=== PATIENT | female | born 1970 ===

== ENCOUNTER 2017-01-08 05:10 | Inpatient (IN) | payer OTHER ==
[~2017-01-08] VITALS: Ht 157.5 cm; Wt 77.1 kg
[2017-01-08] VITALS (15 sets, daily range): BP systolic 120–154; BP diastolic 72–89
[2017-01-08] MEDS ORDERED: Ciprofloxacin Opth Soln RIGHT EYE SCH (06:00)
[2017-01-08] MEDS ORDERED: Akten 3.5% 1ml Btl RIGHT EYE SCH (06:00)
[2017-01-08] MEDS ORDERED: Pred Forte 1% Opth Susp 1ml RIGHT EYE SCH (06:00)
[2017-01-08] MEDS ORDERED: Phenylephrine 2.5% Op Soln RIGHT EYE SCH (06:00)
[2017-01-08 06:26] LABS: APPEARANCE,URINE CLEAR; KETONES,URINE NEGATIVE (NEGATIVE); LEUKOCYTE ESTERASE ,URINE NEGATIVE (NEGATIVE); NITRITE,URINE NEGATIVE (NEGATIVE); PH,URINE 6 (4.5-8.0); PROTEIN,URINE NEGATIVE (NEGATIVE); UROBILINOGEN,URINE NORMAL MG/DL (0.0-1.0)
[2017-01-08] MEDS ORDERED: OXYCODON-ACETA1 EAC2 ORAL (06:28)
[2017-01-08] MEDS ORDERED: METFORMIN HCL1000 M1 ORAL (06:28)
[2017-01-08] MEDS ORDERED: GLIPIZIDE10 MG PO (06:28)
[2017-01-08] MEDS ORDERED: ATORVASTATIN CA20 MG ORAL (06:28)
[2017-01-08] MEDS ORDERED: LISINOPRIL5 MG ORAL (06:28)
[2017-01-08] MEDS ORDERED: HUMULIN N100 UNIT/1 SUBQ (06:28)
[2017-01-08] MEDS ORDERED: SERTRALINE HCL50 MG ORAL (06:28)
[2017-01-08] MEDS ORDERED: Thrombin 5000 units TOPIC ONE (06:35)
[2017-01-08] MEDS ORDERED: Thrombin 5000 units spray kit TOPIC ONE (06:35)
[2017-01-08] MEDS ORDERED: Bupivacaine w/Epi 0.5% 30ml Vial INJ ONE (06:35)
[2017-01-08] MEDS ORDERED: Gelfoam Absorbable 1gm powder pkt TOPIC ONE (06:35)
[2017-01-08] MEDS ORDERED: Bacitracin 50000 Units Vial ONE (06:36)
[2017-01-08 06:46] LABS: BACTERIA,URINE OCCASIONAL /HPF; RBC,URINE 0-2 /HPF (0 - 2); SQUAMOUS EPITHELIAL CELL,UR OCCASIONAL /LPF (NONE/OCC); WBC,URINE 0-2 /HPF (0 - 2)
[2017-01-08] MEDS ORDERED: Propofol 10mg/ml 20ml IV ONE (07:00)
[2017-01-08] MEDS ORDERED: LR 1000ml ONE (07:00)
[2017-01-08] MEDS ORDERED: Midazolam 2mg/2ml Inj ONE (07:00)
[2017-01-08] MEDS ORDERED: fentaNYL 100 mcg/2 mL IV ONE (07:00)
[2017-01-08] MEDS ORDERED: Zemuron 50mg/5ml Inj IV ONE (07:00)
--- NOTE | 2017-01-08 07:02 | Pre-Procedure Note/Attestation ---
Pre-Procedure Note/Attestation Complete Prior to Procedure Procedure Narrative: For L5-S1 Anterior Lumbar Decompression and Fusion Indications for Procedure Pre-Operative Diagnosis: Instability with Disc Herniation L5-S1 Attestation I attest that I discussed the nature of the procedure; its benefits; risks and complications; and alternatives (and the risks and benefits of such alternatives ), prior to the procedure, with the patient (or the patient's legal patient admitting representative). I attest that, if there was a reasonable possibility of needing a blood transfusion, the patient (or the patient's legal patient admitting representative) was given the [facility] standardized written summary, pursuant to the Antonio Uriel Blood Safety Act ([place] Health and Safety Code # 1645, as amended). I attest that I re-evaluated the patient just prior to the surgery and that there has been no change in the patient's H&P, except as documented below: JENNYFER DESAI January 08, 2017 07:02
[2017-01-08] MEDS ORDERED: Clindamycin 600mg 50 ML IV ONE (07:09)
--- NOTE | 2017-01-08 07:59 | Anethesia Preoperative Eval ---
Anesthesia Pre-op PMH/ROS General Date of Evaluation: January 08, 2017 Time of Evaluation: 07:00 Anesthesiologist: santos ASA Score: ASA 2 Mallampati Score Class I : Soft palate, uvula, fauces, pillars visible Class II: Soft palate, uvula, fauces visible Class III: Soft palate, base of uvula visible Class IV: Only hard plate visible Mallampati Classification: Class I Surgeon: doretha Surgical Procedure: alif Anesthesia History: none Family History: no anesthesia problems Allergies: Coded Allergies: HYDROCODONE (Verified Allergy, Mild, 01/08/17) itching Past Medical History Cardiovascular: Reports: HTN Endocrine: Reports: DM Anesthesia Pre-op Phys. Exam Physician Exam Last Vital Signs Date Time Temp Pulse Resp B/P Pulse Ox O2 Delivery O2 Flow Rate FiO2 01/08/17 06:29 97.9 78 20 128/84 100 Room Air Anesthesia Pre-op A/P Labs Urine Test Test 01/08/17 06:05 Urine HCG, Qualitative Negative Maria De Jesus Main MD January 08, 2017 07:59
[2017-01-08] MEDS ORDERED: LORazepam Inj 2mg/ml 1ml IV PRN (08:00)
[2017-01-08] MEDS ORDERED: Acetaminophen 650 MG SUPP RECTAL PRN (08:30)
--- NOTE | 2017-01-08 08:41 | Operative Note - PDOC ---
Operative Note Operative Note Chief Complaint: Low back and leg pain Pre-op Diagnosis: Instability with Disc Herniation L5-S1 Procedure: L5/S1 Anterior lumbar decompression and fusion Post-op Diagnosis: same as pre-op Operative Findings: consistent w/pre-op dx studies Surgeon: Carin Geological Drafter: RACHANA La Additional Surgeons: Holcomb - Vascular Access Anesthesiologist: Kristi Anesthesia: general Specimen: none Complications: yes Condition: stable Estimated Blood Loss: minimal Drains: none Implant(s) used?: Yes - Chasidy InFix Medium 8, 3+3 degree, Chasidy DBJENNYFER PIERCE January 08, 2017 08:41
[2017-01-08] MEDS ORDERED: LORazepam 1mg tab ORAL PRN (08:45)
[2017-01-08] MEDS ORDERED: DiphenhydrAMINE 50mg/ml Inj IVP PRN (08:45)
--- NOTE | 2017-01-08 08:47 | Immediate Post-Op Evaluation ---
Immediate Post-Op Evalulation Immediate Post-Op Evalulation Procedure: alif Date of Evaluation: January 08, 2017 Time of Evaluation: 08:46 Nausea: No Vomiting: No Patient Status: extubated Given Within 1 Hr of Incision: Yes Maria De Jesus Main MD January 08, 2017 08:47
[2017-01-08] MEDS: PCA Morphine 1mg/ml 30 ML IV PRN (09:37)
[2017-01-08] MEDS: fentaNYL 100 mcg/2 mL IV PRN ×3 (09:50→10:22)
[2017-01-08] MEDS ORDERED: Rate Change PCA 1 Each MISC PRN (10:00)
[2017-01-08] MEDS ORDERED: Naloxone 0.4mg/ml Inj IVP PRN (10:00)
[2017-01-08] MEDS ORDERED: Morphine Sulfate 2mg/ml Inj IVP PRN (10:00)
--- NOTE | 2017-01-08 10:39 | 48 Hour Post Anesthesia Eval ---
Post Anesthesia Evaluation Procedure: alif Date of Evaluation: January 08, 2017 Time of Evaluation: 10:39 Nausea: No Vomiting: No Hydration Status: adequate Mental Status/LOC: patient returned to baseline Follow-up care needed: ready to discharge Maria De Jesus Main MD January 08, 2017 10:39
--- NOTE | 2017-01-08 12:43 | History & Physical ---
History and Physical History & Physicial HP reviewed care reviewed d/w RN meds noted PRO MATA January 08, 2017 12:43
--- NOTE | 2017-01-08 12:43 | Diagnostic Imaging Report ---
Indications: Low back and right lower extremity pain, lumbar fusion Technique: Above procedure including fluoroscopy performed by Dr. Ocampo. Portable intraoperative spot film images of lower lumbar spine performed in AP and lateral projections. Findings: Comparison: None Fusion hardware is present within the L5-S1 disc space, well centered. IMPRESSION: Surgical changes as described
--- NOTE | 2017-01-08 12:50 | Operative Note - Dictated ---
DATE OF OPERATION: 01/08/2017 FACILITY: [facility]. SURGEON: Jenaro Del Rosario M.D. REFRIGERATOR REPAIR TECHNICIAN: Fred Lyon ANESTHESIOLOGIST: Dr. Main. ANESTHESIA: General endotracheal with arterial blood pressure monitoring. PREOPERATIVE DIAGNOSIS: Lumbar disc bulge collapse and segmental instability L5-S1. POSTOPERATIVE DIAGNOSIS: Lumbar disc bulge collapse and segmental instability L5-S1. OPERATIVE PROCEDURE: Left pararectus retroperitoneal approach to lumbar spine with vessel mobilization and retraction using a table fixed frame and reverse tip blades anterior annulotomy, nuclear diskectomy, partial vertebrectomy, bilateral neural foraminotomy and micro neurolysis. Open-reduction internal fixation at the lumbosacral level using a medium footprint infix cage with 8 mm of height and 6+ 3 degrees of added lordosis fusion using autogenous bone and bone protein. Use of image intensifier for placement of the implant and use of pulse oximetry for monitoring vasculature of the lower extremities. The patient was prepped and draped supine on the operating table. Bolster was placed in lumbar area to create normal lordosis. The lumbar area was prepped and draped freely, transverse incision was made by Dr. Holcomb. The rectus was mobilized. The retroperitoneal space was opened. The anterior spine was exposed at the L5-S1 retracting the vessels and controlling the middle sacral vein. The entire anterior anulus at L5-S1 was exposed. The center was marked with a needle and then fluoro was done and AP and lateral planes to confirm placement. A 10 blade was used to do an anterior annulotomy. The nuclear disk and cartilaginous endplate was then sequentially removed with angled and straight larger to smaller curettes Kerrisons and pituitaries. Lordotic distractor plugs detachable used [id number] beginning at 8 mm and progressing to 12. The dissection was carried posteriorly to the posterior disc anulus in the posterior longitudinal ligament which were released exposing the dural sac in the canal L5-S1. The bilateral neural foraminotomy was accomplished and the space was templated for size, tensing the lateral ligaments and 8 spacer provided adequate distraction and filled the disc space to the apophyseal line 6+ 3 degrees of lordosis was added to reconstruct normal sagittal alignment. The endplates were placed on a merino and tapped into place the side struts were then inserted and also tapped into place, checked on x-ray. The handle was then removed and the endplates were cold welded. Their position was again checked. Bone protein and autogenous bone was placed between the 2 endplates, the vessels were checked. The wound was closed in layers including anteroposterior sheath subcutaneous and skin. Blood loss was less than 100 mL. The patient was placed in a compression bandage and returned recovery room in good condition. Jenaro Del Rosario M.D. DR: Fredy JOB#: [id number] CC:
[2017-01-08] MEDS: Clindamycin 600mg 50 ML IV SCH ×2 (12:52→18:05)
[2017-01-08] MEDS: Morphine Sulfate 4mg/ml Inj SUBQ PRN (16:19)
[2017-01-08] MEDS: NovoLOG Insulin Flexpen SUBQ SCH ×2 (16:23→23:06)
--- NOTE | 2017-01-08 16:39 | Operative Note - Dictated ---
DATE OF OPERATION: 01/08/2017 VASCULAR SURGEON: Sreedhar Holcomb M.D. SPINE SURGEON: Jenaro Del Rosario M.D. PREOPERATIVE DIAGNOSES: Degenerative disc disease. POSTOPERATIVE DIAGNOSES: Degenerative disc disease. PROCEDURE PERFORMED: Anterior retroperitoneal exposure of L5-S1 vertebral interspace. INDICATIONS: The patient is a very pleasant woman, who was seen in my office prior to surgery. She has been scheduled for anterior spine surgery at L5-S1. She has no history of prior anterior abdominal surgery. No history of deep venous thrombosis or bleeding complications as described. She has been made aware of the risks of surgery including possibly vascular injury, possible need for blood transfusion, and deep venous thrombosis. DESCRIPTION OF FINDINGS: A low Pfannenstiel type incision was used. A left retroperitoneal approach was used. There is no peritoneal or ureteral violation. There is no vascular injury. Exposure of L5-S1 was obtained below the iliac bifurcation with retraction of left iliac vessels superior and laterally. Fluoroscopy used to confirm the appropriate level prior to instrumentation. On completion, the peritoneum and ureter intact. Iliac vessels are intact. No palpable femoral pedal pulses. Pulse oximetry normal left foot throughout the case. Blood loss was less than 50 mL. DESCRIPTION OF PROCEDURE: The patient was taken to the operative room, general anesthesia was used. Intravenous antibiotics were given. The patient's abdomen was prepped and draped. An appropriate time-out was taken. A transverse incision made just above the pubic symphysis. Flaps were raised superiorly. The anterior fascia was incised longitudinally in the midline. A plane was then identified posterior to the left rectus abdominis and developed posterolaterally towards the patient's left. The retroperitoneal space entered below the arcuate line and the peritoneum and ureter mobilized towards the patient's right exposing the left common iliac vessels. Dissection was carried on undersurface of left common iliac vein. The median sacral artery and vein were identified and ligated with bipolar electrocautery. This allowed exposing anterior surface of L5- S1. The Omni retractor set in place and the Martin blades were used for lateral retraction and closure of L5 was obtained. Fluoroscopy used to confirm the appropriate level. Instrumentation performed. On completion, the peritoneum intact. Anterior fascia was closed using #1 PDS suture in running fashion. Skin and subcutaneous tissue was closed using 3-0 Vicryl and 4-0 Monocryl running subcuticular closure technique. Sreedhar Holcomb M.D. DR: ERIC JOB#: [id number] CC:
[2017-01-08] MEDS: PCA shift volume MISC SCH (19:00)
[2017-01-08] MEDS: Atorvastatin 20mg tab ORAL SCH (22:50)
[2017-01-09] MEDS: Clindamycin 600mg 50 ML IV SCH ×2 (01:05→06:37)
[2017-01-09 04:23] VITALS: BP 125/72
[2017-01-09] MEDS: Morphine Sulfate 4mg/ml Inj SUBQ PRN (06:36)
[2017-01-09] MEDS: NovoLOG Insulin Flexpen SUBQ SCH ×4 (06:38→20:44)
[2017-01-09] MEDS: PCA shift volume MISC SCH ×2 (07:00→19:00)
[2017-01-09] MEDS: PCA Morphine 1mg/ml 30 ML IV PRN ×2 (07:13→20:35)
[2017-01-09 08:00] VITALS: BP 128/73
[2017-01-09] MEDS: Sertraline 50mg tab ORAL SCH (08:37)
[2017-01-09] MEDS: Lisinopril 2.5mg tab ORAL SCH (08:37)
--- NOTE | 2017-01-09 09:07 | General Progress Note ---
Assessment/Plan Assessment/Plan Instability with Disc Herniation L5-S1 L5/S1 Anterior lumbar decompression and fusion diabetes hypertension PLAN 1. incentive spirometry 2. SCD 3. PT evaluation and therapy 4. Hydration 5. Pain management 6. discharge once stable with outpatient follow up 7. NPO pending bowel sounds; Zofran PRN Subjective Allergies: Coded Allergies: HYDROCODONE (Verified Allergy, Mild, 01/08/17) itching Subjective co nausea and pain Objective Last 24 Hour Vital Signs Date Time Temp Pulse Resp B/P Pulse Ox O2 Delivery O2 Flow Rate FiO2 01/09/17 08:37 128/73 01/09/17 08:00 98.8 102 20 128/73 95 Room Air 01/09/17 08:00 18 01/09/17 07:06 97.0 01/09/17 07:06 97.0 01/09/17 04:23 97.0 85 20 125/72 98 01/09/17 04:00 18 01/08/17 23:45 18 01/08/17 20:13 97.3 77 19 124/75 100 Room Air 01/08/17 20:00 18 01/08/17 16:00 18 01/08/17 16:00 97.3 86 20 123/74 95 Room Air 01/08/17 12:00 97.2 84 20 120/74 96 Room Air 01/08/17 11:54 16 01/08/17 11:30 20 01/08/17 11:03 20 01/08/17 10:50 20 01/08/17 10:47 98.0 80 20 128/77 100 Nasal Cannula 2.0 01/08/17 10:30 86 20 123/73 100 Nasal Cannula 2.0 01/08/17 10:28 98.0 01/08/17 10:22 84 20 129/76 100 Nasal Cannula 2.0 01/08/17 10:14 20 01/08/17 10:07 20 01/08/17 10:05 82 20 127/76 100 Nasal Cannula 2.0 01/08/17 09:52 20 01/08/17 09:50 90 20 135/88 100 Nasal Cannula 2.0 01/08/17 09:37 20 01/08/17 09:30 81 20 125/80 100 Simple Mask 8.0 01/08/17 09:15 89 20 135/85 100 Simple Mask 8.0 Intake and Output 01/08/17 01/09/17 19:00 07:00 Intake Total 1250 ml Output Total 75 ml Balance 1175 ml Intake IV Total 1250 ml Output Urine Total 75 ml # Voids 3 2 Laboratory Tests 01/08/17 14:05: Hemoglobin A1c 8.6H Height (Feet): 5 Height (Inches): 2.00 Weight (Pounds): 170 Objective WDWN NAD clear breath sounds bilaterally without rhonchi or wheeze [id number] without MRG no bowel sounds no CCE nonfocal PRO MATA January 09, 2017 09:07
[2017-01-09 12:00] VITALS: BP 110/72
[2017-01-09 16:00] VITALS: BP 128/72
[2017-01-09 20:00] VITALS: BP 140/76
[2017-01-09] MEDS: Atorvastatin 20mg tab ORAL SCH (20:33)
[2017-01-10] VITALS: BP 134/74
[2017-01-10 04:00] VITALS: BP 124/76
[2017-01-10] MEDS: NovoLOG Insulin Flexpen SUBQ SCH ×4 (05:47→20:49)
--- NOTE | 2017-01-10 06:24 | General Progress Note ---
Assessment/Plan Assessment/Plan Instability with Disc Herniation L5-S1 L5/S1 Anterior lumbar decompression and fusion diabetes hypertension PLAN 1. incentive spirometry 2. SCD 3. PT evaluation and therapy 4. Hydration 5. Pain management 6. discharge once stable with outpatient follow up 7. Zofran PRN 8. advance diet per surgery Subjective Allergies: Coded Allergies: HYDROCODONE (Verified Allergy, Mild, 01/08/17) itching Subjective co pain Objective Last 24 Hour Vital Signs Date Time Temp Pulse Resp B/P Pulse Ox O2 Delivery O2 Flow Rate FiO2 01/10/17 04:00 98.1 109 18 124/76 95 Room Air 01/10/17 04:00 20 01/10/17 00:00 99.9 112 18 134/74 95 Room Air 01/10/17 00:00 20 01/09/17 20:00 100.6 114 20 140/76 97 Room Air 01/09/17 20:00 20 01/09/17 16:00 20 01/09/17 16:00 98.4 111 18 128/72 91 Room Air 01/09/17 12:00 98.2 93 20 110/72 98 Room Air 01/09/17 12:00 19 01/09/17 08:37 128/73 01/09/17 08:00 98.8 102 20 128/73 95 Room Air 01/09/17 08:00 18 01/09/17 07:06 97.0 01/09/17 07:06 97.0 Intake and Output 01/09/17 01/10/17 19:00 07:00 Intake Total 900 ml 525 ml Balance 900 ml 525 ml Intake IV Total 900 ml 525 ml # Voids 3 Labs Test 01/08/17 06:05 01/08/17 14:05 Urine Color Pale yellow Urine Appearance Clear Urine pH 6 (4.5-8.0) Urine Specific Arthur 1.015 (1.005-1.035) Urine Protein Negative (NEGATIVE) Urine Glucose (UA) Negative (NEGATIVE) Urine Ketones Negative (NEGATIVE) Urine Occult Blood Negative (NEGATIVE) Urine Nitrite Negative (NEGATIVE) Urine Bilirubin Negative (NEGATIVE) Urine Urobilinogen Normal MG/DL (0.0-1.0) Urine Leukocyte Esterase Negative (NEGATIVE) Urine RBC 0-2 /HPF (0 - 2) Urine WBC 0-2 /HPF (0 - 2) Urine Squamous Epithelial Cells Occasional /LPF Urine Bacteria Occasional /HPF (NONE) Urine HCG, Qualitative Negative Hemoglobin A1c 8.6 % (< 6.0) Height (Feet): 5 Height (Inches): 2.00 Weight (Pounds): 170 Objective WDWN NAD clear breath sounds bilaterally without rhonchi or wheeze [id number] without MRG no bowel sounds no CCE nonfocal PRO MATA January 10, 2017 06:24
[2017-01-10] MEDS: PCA shift volume MISC SCH ×2 (07:21→19:18)
[2017-01-10 08:00] VITALS: BP 111/62
[2017-01-10] MEDS ORDERED: Naloxone 0.4mg/ml Inj IVP PRN ×2 (08:30→11:00)
[2017-01-10] MEDS ORDERED: Morphine Sulfate 4mg/ml Inj SUBQ PRN ×3 (08:30→11:00)
[2017-01-10] MEDS: Sertraline 50mg tab ORAL SCH (08:47)
[2017-01-10] MEDS: Lisinopril 2.5mg tab ORAL SCH (08:48)
[2017-01-10] MEDS ORDERED: PCA Morphine 1mg/ml 30 ML IV PRN (11:00)
[2017-01-10] MEDS ORDERED: Rate Change PCA 1 Each MISC PRN (11:00)
[2017-01-10] MEDS ORDERED: Morphine Sulfate 2mg/ml Inj IVP PRN (11:00)
[2017-01-10 12:00] VITALS: BP 99/65
[2017-01-10 16:00] VITALS: BP 108/56
[2017-01-10 20:09] VITALS: BP 144/77
[2017-01-10] MEDS: Atorvastatin 20mg tab ORAL SCH (20:48)
[2017-01-11 00:25] VITALS: BP 140/80
[2017-01-11 04:00] VITALS: BP 108/73
[2017-01-11] MEDS: NovoLOG Insulin Flexpen SUBQ SCH ×4 (06:00→20:58)
[2017-01-11] MEDS: PCA shift volume MISC SCH (07:00)
--- NOTE | 2017-01-11 07:43 | General Progress Note ---
Assessment/Plan Assessment/Plan Instability with Disc Herniation L5-S1 L5/S1 Anterior lumbar decompression and fusion diabetes hypertension PLAN 1. incentive spirometry 2. SCD 3. PT evaluation and therapy 4. Hydration- january dc 5. Pain management- taper off SURGICAL INSTRUMENT REPAIR SPECIALIST 6. discharge hope in am 7. Zofran PRN 8. advance diet and monitor tolerance Subjective Allergies: Coded Allergies: HYDROCODONE (Verified Allergy, Mild, 01/08/17) itching Subjective co pain tolerating diet Objective Last 24 Hour Vital Signs Date Time Temp Pulse Resp B/P Pulse Ox O2 Delivery O2 Flow Rate FiO2 01/11/17 04:00 18 01/11/17 04:00 97.7 87 19 108/73 98 Room Air 01/11/17 00:25 97.9 95 19 140/80 98 Room Air 01/11/17 00:05 16 01/10/17 20:09 98.1 94 19 144/77 100 Room Air 01/10/17 20:00 16 01/10/17 16:00 16 01/10/17 16:00 97.2 87 19 108/56 96 Room Air 01/10/17 14:27 16 01/10/17 14:20 16 01/10/17 12:00 16 01/10/17 12:00 97.0 83 19 99/65 100 Room Air 01/10/17 08:48 111/62 01/10/17 08:00 16 01/10/17 08:00 97.5 88 18 111/62 95 Room Air Intake and Output 01/10/17 01/11/17 19:00 07:00 Intake Total 1625 ml Balance 1625 ml Intake Oral 800 ml IV Total 825 ml # Voids 3 Height (Feet): 5 Height (Inches): 2.00 Weight (Pounds): 170 Objective WDWN NAD clear breath sounds bilaterally without rhonchi or wheeze [id number] without MRG active bowel sounds no CCE nonfocal PRO MATA January 11, 2017 07:43
[2017-01-11 08:00] VITALS: BP 98/64
[2017-01-11] MEDS ORDERED: Oxycodone/Acetaminophen 5-325 ORAL PRN (08:15)
[2017-01-11] MEDS ORDERED: Morphine Sulfate 4mg/ml Inj SUBQ PRN (08:30)
[2017-01-11] MEDS: Sertraline 50mg tab ORAL SCH (08:41)
[2017-01-11] MEDS: Lisinopril 2.5mg tab ORAL SCH (08:41)
[2017-01-11] MEDS ORDERED: Tubing IV Secondary IV ONE (09:42)
[2017-01-11] MEDS ORDERED: NS 550ML IV ONE (09:42)
[2017-01-11 12:00] VITALS: BP 112/68
[2017-01-11 16:00] VITALS: BP 121/75
[2017-01-11 20:00] VITALS: BP 123/77
[2017-01-11] MEDS: Atorvastatin 20mg tab ORAL SCH (20:57)
[2017-01-12 00:25] VITALS: BP 124/78
[2017-01-12 04:00] VITALS: BP 129/71
[2017-01-12] MEDS: NovoLOG Insulin Flexpen SUBQ SCH (05:40)
[2017-01-12] MEDS ORDERED: Milk of Magnesia 30ml Ud ORAL PRN (07:30)
[2017-01-12 08:00] VITALS: BP 145/84
[2017-01-12 08:37] VITALS: BP 145/84
[2017-01-12] MEDS: Lisinopril 2.5mg tab ORAL SCH (08:37)
[2017-01-12] MEDS: Sertraline 50mg tab ORAL SCH (08:38)
[2017-01-12 08:52] LABS: ANION GAP 12 (5-15); CALCIUM 8.7 mg/dL (8.6-10.2); CARBON DIOXIDE 29 mEQ/L (20-30); CHLORIDE 94 mEQ/L (98-107); CREATININE 0.5 mg/dL (0.5-0.9); GLOMERULAR FILTRATION RATE > 60 mL/min (>60); HEMOLYSIS 3; POTASSIUM 4.4 mEQ/L (3.4-4.9); SODIUM 135 mEQ/L (135-145)
[2017-01-12] MEDS ORDERED: Bisacodyl EC 5mg tab ORAL ONE (09:00)
[2017-01-12] MEDS ORDERED: GlipiZIDE 10mg tab ORAL SCH (09:00)
--- NOTE | 2017-01-12 09:44 | General Surgery Progress Note ---
General Surgery-Progress Note Subjective Procedure Performed L5/S1 Anterior lumbar decompression and fusion Symptoms: improved, tolerating diet Objective Last 24 Hour Vital Signs Date Time Temp Pulse Resp B/P Pulse Ox O2 Delivery O2 Flow Rate FiO2 01/12/17 08:37 145/84 01/12/17 04:00 97.5 80 18 129/71 98 Room Air 01/12/17 00:25 98.1 88 20 124/78 95 Room Air 01/11/17 20:00 98.2 102 18 123/77 96 Room Air 01/11/17 16:00 97.7 87 20 121/75 100 Room Air 01/11/17 12:00 98.1 83 19 112/68 94 Room Air I&O Intake and Output 01/11/17 01/12/17 19:00 07:00 Intake Total 795 ml Balance 795 ml Intake Oral 720 ml IV Total 75 ml # Voids 4 Dressing: dry Wound: clean Drains: none Abdomen: soft Laboratory Tests Test 01/12/17 08:25 Sodium Level 135 mEQ/L (135-145) Potassium Level 4.4 mEQ/L (3.4-4.9) Chloride Level 94 mEQ/L (98-107) L Carbon Dioxide Level 29 mEQ/L (20-30) Anion Gap 12 (5-15) Blood Urea Nitrogen 4 mg/dL (7-23) L Creatinine 0.5 mg/dL (0.5-0.9) Estimat Glomerular Filtration Rate > 60 mL/min (>60) Glucose Level 223 mg/dL (74-106) H Calcium Level 8.7 mg/dL (8.6-10.2) Additional Comments Patient tolerating regular diet, controlled on oral pain meds and has all DME needed. She has medications and follow up arranged. Discharge to home today. Dr. Syed following. JENNYFER DESAI January 12, 2017 09:44
[2017-01-12] MEDS ORDERED: metFORMIN 500mg tab ORAL SCH (10:00)
[2017-01-12] MEDS ORDERED: Naloxone 0.4mg/ml Inj IVP PRN (11:00)
[2017-01-12] MEDS ORDERED: Morphine Sulfate 4mg/ml Inj SUBQ PRN (11:00)
--- NOTE | 2017-01-12 12:25 | General Progress Note ---
Assessment/Plan Assessment/Plan Instability with Disc Herniation L5-S1 L5/S1 Anterior lumbar decompression and fusion diabetes hypertension PLAN 1. incentive spirometry 2. SCD 3. PT evaluation and therapy 4. laxatives 5. Pain management- taper off PET NUTRITION SPECIALIST 6. discharge today 7. Zofran PRN Subjective Allergies: Coded Allergies: HYDROCODONE (Verified Allergy, Mild, 01/08/17) itching Subjective co pain tolerating diet and has noted constipation Objective Last 24 Hour Vital Signs Date Time Temp Pulse Resp B/P Pulse Ox O2 Delivery O2 Flow Rate FiO2 01/12/17 08:37 145/84 01/12/17 08:00 98.2 99 20 145/84 98 Room Air 01/12/17 04:00 97.5 80 18 129/71 98 Room Air 01/12/17 00:25 98.1 88 20 124/78 95 Room Air 01/11/17 20:00 98.2 102 18 123/77 96 Room Air 01/11/17 16:00 97.7 87 20 121/75 100 Room Air Intake and Output 01/11/17 01/12/17 19:00 07:00 Intake Total 795 ml Balance 795 ml Intake Oral 720 ml IV Total 75 ml # Voids 4 Laboratory Tests 01/12/17 08:25: Sodium Level 135, Potassium Level 4.4, Chloride Level 94L, Carbon Dioxide Level 29, Anion Gap 12, Blood Urea Nitrogen 4L, Creatinine 0.5, Estimat Glomerular Filtration Rate > 60, Glucose Level 223H, Calcium Level 8.7 Height (Feet): 5 Height (Inches): 2.00 Weight (Pounds): 170 Objective WDWN NAD clear breath sounds bilaterally without rhonchi or wheeze [id number] without MRG active bowel sounds no CCE nonfocal PRO MATA January 12, 2017 12:25
--- NOTE | 2017-01-15 10:14 | Discharge Summary ---
Discharge Summary Hospital Course Date of Admission January 08, 2017 at 05:10 Date of Discharge January 12, 2017 at 10:50 Admitting Diagnosis DDD , Instability with Disc Herniation L5-S1 Reason for Hospitalization: elective surgery HPI Cassidy Eduardo is a 46 year old female who was admitted on January 08, 2017 with instability with Lumbar disc bulge collapse and segmental instability L5-S1 for elective surgery Consultations dr Olguin - IM Procedures 01/08 dr Del Rosario s/p L5/S1 Anterior lumbar decompression and fusion 01/08 dr Holcomb - s/p Anterior retroperitoneal exposure of L5-S1 vertebral interspace. Hospital Course s/p surgery pain management, off PLACEMENT SPECIALIST SCD IS at the bedside, encourage to use q 1 hr while in the bed ( instructions and teaching provided by nursing staff) Bowel regimen antiemetic prn BS management with oral antiglycemic and SS of insulin as needed BP stable, no need for anti HTN mediations at this time neurovascular intact incision C/D/I pain controlled tolerated diet voided freely had BM stable for discharge DISCHARGE DIAGNOSES DDD Instability with Disc Herniation L5-S1 Lumbar disc bulge collapse and segmental instability L5-S1. s/p L5/S1 Anterior lumbar decompression and fusion diabetes hypertension follow up with surgeon as outpatient as recommended by surgeon Discharge Medications Continued Medications: Atorvastatin Calcium* (Atorvastatin Calcium*) 20 Mg Tablet 20 MG ORAL BEDTIME, TAB Glipizide (Glipizide) 10 Mg Tablet 10 MG PO BID, TAB Lisinopril (Lisinopril*) 5 Mg Tablet 5 MG ORAL DAILY, TAB Metformin Hcl* (Metformin Hcl*) 1,000 Mg Tablet 1000 MG ORAL BID, TAB Nph, Human Insulin Isophane (Humulin N) 100 Unit/1 Ml Vial 50 SUBQ NIGHT, VIAL Oxycodone Hcl/Acetaminophen 7.5-325 (Oxycodon-Acetaminophen 7.5-325) 1 Each Tablet 1 TAB ORAL Q4H, TAB Sertraline Hcl* (Zoloft*) 50 Mg Tablet 50 MG ORAL DAILY, TAB Discharge Condition Upon Discharge: stable Discharge Disposition Patient was discharged to Home () Discharge Diagnoses: Discharge Instructions Discharge Instructions Special Instructions I have been assigned to complete a D/C Summary on this account. I was not involved in the patient management Arlene Sierra NP (Vanchtein) January 15, 2017 10:14
== END 2017-01-12 10:50 | disposition home or self-care (01) | DRG 460 ==
LOC: SDSOVERFLO 05:10 → 3E 11:12
PROC: 0SG30A0 Fusion of Lumbosacral Joint with Interbody Fusion Device, Anterior Approach, Anterior Column, Open Approach (ICD-10-PCS; principal; 2017-01-08 07:00)
PROC: 0SB40ZZ Excision of Lumbosacral Disc, Open Approach (ICD-10-PCS; principal; 2017-01-08 07:00)
DX: M51.17 Intervertebral disc disorders with radiculopathy, lumbosacral region (principal); I10 Essential (primary) hypertension; M53.2X7 Spinal instabilities, lumbosacral region; E11.9 Type 2 diabetes mellitus without complications; E78.00 Pure hypercholesterolemia, unspecified; Z79.4 Long term (current) use of insulin; Z88.6 Allergy status to analgesic agent
CPT/HCPCS: 36415; 72020; 76001; 80048; 81001; 81025; 82962; 83036; 86850; 86900; 86901; 87081; 94003; 94150; J1815; J2250; J2405; S0077